=== PATIENT | male | born 1995 | race Two or more races ===

== ENCOUNTER 2024-04-14 10:09 | Outpatient (CLI) | payer OTHER | END 2024-04-14 10:15 | disposition home or self-care (01) | LOC: RAD 10:09 | DX: M25.572 Pain in left ankle and joints of left foot (principal) ==

== ENCOUNTER 2024-12-01 13:47 | Outpatient (CLI) | payer OTHER | END 2024-12-01 13:49 | disposition home or self-care (01) | LOC: RAD 13:47 | DX: M25.571 Pain in right ankle and joints of right foot (principal); M25.572 Pain in left ankle and joints of left foot ==